=== PATIENT | female | born 1950 | race Caucasian/White ===

== ENCOUNTER 2017-09-02 20:01 | Emergency (ER) | payer MEDICARE, OTHER ==
--- NOTE | 2017-09-02 20:14 | ED Physician Documentation ---
Nausea/Vomiting/Diarrhea - HISTORIAN Historian: patient, child - HPI Stated Complaint: nausea Chief Complaint: Nausea,Vomiting,Diarrhea Onset: hours (2) Duration: sudden-onset Last known Well Date: 09/02/17 Last Known Well Time: 18:00 Last known Well Code/Unknown Code: Unknown Timing: still present (nausea - no further dizziness ) Context: denies: out of country travel, bad food, recent trauma Severity: mild Further Comments: yes (she states around 6 pm she was sitting on porch and she had a wave of dizziness and nausea. She did vomit and had a bowel movement and she continues to have nausea. She thought her blood sugar was low although she did not check her blood sugar. she denies a fever. no other complaints currently. Only the nausea) - Associated Symptoms Vomiting: other (x1) Diarrhea: other (one regular bowel movement ) Abdominal Pain: epigastric, other (mild pain with palpation epigastric area ) - ROS CONST: none CVS/RESP: denies: chest pain, shortness of breath, cough GI/: denies: constipation EYES/ENT: denies: problems with vision, sore throat MS/SKIN/LYMPH: denies: rash NEURO/PSYCH: denies: headache, fainting, anxiety, depression - PAST HX Past History: diabetes Type 2 Surgeries/Procedures: appendectomy Immunizations: UTD Allergies/Adverse Reactions: Allergies Allergy/AdvReac Type Severity Reaction Status Date / Time No Known Allergies Allergy Verified 09/02/17 20:10 Home Medications: Ambulatory Orders Medication Instructions Recorded Metformin HCl [Glucophage] 500 mg PO BID 09/02/17 - SOCIAL HX Smoking History: non-smoker Alcohol Use: none Drug Use: none - FAMILY HX Family History: none - VITAL SIGNS Vital Signs: Vital Signs Temp Pulse Resp BP Pulse Ox 98.2 F 72 16 158/67 97 09/02/17 20:05 09/02/17 20:05 09/02/17 20:05 09/02/17 20:05 09/02/17 20:05 - REVIEWED ASSESSMENTS Nursing Assessment Reviewed: Yes Vitals Reviewed: Yes Progress - Progress Progress: 2119: discussed results with daughter and pt. She is wanting to go home. She is feeling better. No pain. DG ED Results Lab/Radiology - Lab Results Lab Results: Lab Results 04/07/18 04/07/18 20:50 20:50 WBC 11.60 K/ul K/ul (4.00-12.00) RBC 4.32 M/ul M/ul (3.90-5.20) Hgb 14.3 g/dL g/dL (12.0-16.0) Hct 43.4 % % (34.5-46.5) MCV 100.5 fl H fl (80.0-100.0) MCH 33.1 pg pg (28.0-34.0) MCHC 32.9 g/dL g/dL (30.0-36.0) RDW 13.1 % % (11.3-14.3) Plt Count 252 K/mm3 K/mm3 (130-400) Neut % (Auto) 81.0 % H % (39.0-79.0) Lymph % (Auto) 13.1 % L % (16.0-50.0) [place] % (Auto) 3.8 % % (0.0-11.0) Eos % (Auto) 0.5 % % (0.0-6.8) Baso % (Auto) 0.3 (0.0-1.5) Neut # (Auto) 9.4 # k/uL H # k/uL (1.4-7.7) Lymph # (Auto) 1.5 # k/uL # k/uL (0.6-4.0) [place] # (Auto) 0.4 # k/uL # k/uL (0.0-0.9) Eos # (Auto) 0.1 # k/uL # k/uL (0.0-0.6) Baso # (Auto) 0.0 # k/uL # k/uL (0.0-0.5) Reactive Lymphs % 1.2 % % (0.0-5.0) Reactive Lymphs # 0.1 # k/uL # k/uL (0.0-0.8) Sodium 142 mmol/L mmol/L (136-145) Potassium 3.5 mmol/L mmol/L (3.5-5.1) Chloride 100 mmol/L mmol/L (98-107) Carbon Dioxide 28 mmol/L mmol/L (22-30) BUN 12 mg/dL mg/dL (7-17) Creatinine 0.60 mg/dL mg/dL (0.52-1.04) Estimated Creat Clear 126 Est GFR ( Amer) > 60 (60 - ) Est GFR (Non-Af Amer) > 60 (60 - ) Glucose 129 mg/dL H mg/dL (74-106) Calcium 9.5 mg/dL mg/dL (8.4-10.2) Total Bilirubin 0.6 mg/dL mg/dL (0.2-1.3) AST 19 U/L U/L (15-46) ALT 29 U/L U/L (13-69) Alkaline Phosphatase 78 U/L U/L (38-126) Total Protein 7.3 g/dL g/dL (6.3-8.2) Albumin 4.5 g/dL g/dL (3.5-5.0) - Orders Orders: ED Orders Category Date Time Status Place IV Lock 1T Care 09/02/17 20:19 Active CBC/PLATELET/DIFF Stat Lab 09/02/17 20:50 Completed CMP Stat Lab 09/02/17 20:50 Completed UA W/MICRO IF INDICATED Routine Lab 09/02/17 20:19 Ordered Ondansetron HCl Rapdis [Zofran Odt] Med 09/02/17 21:34 Discontinued 8 mg PO NOW ONE Ondansetron HCl/Pf [Zofran 4 mg/2 ml] Med 09/02/17 20:19 Discontinued 4 mg IVP NOW ONE Nausea Physical Exam - EXAM General Appearance: no acute distress, alert EENT: eye inspection normal Neck: normal inspection Respiratory: no resp distress, chest non-tender, breath sounds normal CVS: reg rate & rhythm, heart sounds normal, equal pulses, no murmur Abdomen: non-tender, tenderness (mild tenderness with palpation epigastric area ) Back: non-tender Skin: warm/dry, normal color Extremities: non-tender, normal range of motion, no evidence of injury, no edema Neuro/Psych: oriented X3, CN's nml as tested, motor nml, sensation nml, mood/ affect nml, cognition normal Discharge Clincal Impression: Nausea and vomiting Qualifiers: Vomiting type: unspecified Vomiting Intractability: unspecified Qualified Code( s): R11.2 - Nausea with vomiting, unspecified Referrals: Aniyah Connors PRN [Primary Care Provider] - 2 Days Comments: 1. zofran 4 mg take 1 by mouth every 8 hours as needed for nausea. 2. Increase fluids 3. continue to take in protein 4. Check blood sugars 5. see PCP Monday for concerns 6. Return to ER for continued symptoms or increasing symptoms Condition: Stable Disposition: 01 HOME, SELF-CARE Decision to Admit: NO Date of Decison to Admit: 09/02/17 Decision Time: 21:34
[2017-09-02] MEDS ORDERED: ONDANSETRON HCL/PF 4 MG/ 2ML VIAL IVP ONE (20:19)
[2017-09-02 21:01] LABS: BASOPHILS % 0.3 (0.0-1.5); EOSINOPHILS % 0.5 % (0.0-6.8); MEAN CORPUSCULAR HEMOGLOBIN 33.1 pg (28.0-34.0); MEAN CORPUSCULAR VOLUME 100.5 fl (80.0-100.0); MONOCYTES % 3.8 % (0.0-11.0); NEUTROPHILS # 9.4 # k/uL (1.4-7.7)
[2017-09-02 21:17] LABS: eGFR (African) > 60; eGFR (Non-African) > 60
[2017-09-02] MEDS ORDERED: ONDANSETRON HCL 4 MG TAB.RAPDIS PO ONE (21:34)
[2017-09-02 21:53] VITALS: BP 135/67
== END 2017-09-02 21:40 | disposition home or self-care (01) ==
LOC: ED 20:01
DX: R11.2 Nausea with vomiting, unspecified (principal)
CPT/HCPCS: 80053; 85025; J2405; 96374; 99283; S1016

== ENCOUNTER 2018-08-02 09:04 | Outpatient (CLI) | payer MEDICARE, OTHER | END 2018-08-02 09:10 | LOC: LAB 09:04 | PROVIDERS: ATTEND Nurse Practitioner Family | DX: J06.9 Acute upper respiratory infection, unspecified (principal) | CPT/HCPCS: 87400 ==